=== PATIENT | male | born 1960 | race Caucasian/White ===

== ENCOUNTER 2016-12-20 19:02 | Emergency (ER) | payer OTHER, BC ==
[~2016-12-20] VITALS: Ht 175.3 cm; Wt 90.7 kg
[2016-12-20] MEDS ORDERED: NORFLEX100 MG PO (21:50)
[2016-12-20] MEDS ORDERED: ULTRAM 50MG TAB50 MG PO (21:50)
[2016-12-20] MEDS ORDERED: NAPROSYN500 MG PO (21:50)
[2016-12-20 22:56] VITALS: BP 186/105
== END 2016-12-20 22:57 | disposition home or self-care (01) ==
LOC: ER 19:02
DX: S39.012A Strain of muscle, fascia and tendon of lower back, initial encounter (principal); S16.1XXA Strain of muscle, fascia and tendon at neck level, initial encounter; F10.99 Alcohol use, unspecified with unspecified alcohol-induced disorder; Z98.890 Other specified postprocedural states; V49.40XA Driver injured in collision with unspecified motor vehicles in traffic accident, initial encounter; Y93.89 Activity, other specified; Y92.89 Other specified places as the place of occurrence of the external cause; Y99.8 Other external cause status

== ENCOUNTER → 2017-05-01 | Outpatient (CLI) | payer OTHER ==
[~2017-05-01] VITALS: Ht 175.3 cm; Wt 90.7 kg
[~2017-05-01] MED LIST: CENTRUM SILVER1 EAC4 PO; LISINOPRIL-HCT1 EAC1 PO; NAPROSYN500 MG PO; NORFLEX100 MG PO; ULTRAM 50MG TAB50 MG PO
== END ==
LOC: GI 07:20
DX: Z12.11 Encounter for screening for malignant neoplasm of colon (principal); K64.8 Other hemorrhoids
CPT/HCPCS: 62110; 62900